=== PATIENT | male | born 1955 | race Caucasian/White ===

== ENCOUNTER 2022-04-13 09:50 | Emergency (ER) | payer BC, MEDICARE ==
[2022-04-13] MEDS: Sodium Chloride 0.9% 1,000 ML IV ONE (11:00)
[2022-04-13 11:17] LABS: ANION GAP 15.1 mmol/L (5-15)
[2022-04-13] MEDS: Ketorolac 30 MG/ML SDV IVPUSH ONE (13:23)
[2022-04-13] MEDS: Tamsulosin 0.4 MG Cap.ER PO ONE (13:28)
== END 2022-04-13 13:40 | disposition home or self-care (01) ==
LOC: KA.ED 09:50
DX: N13.2 Hydronephrosis with renal and ureteral calculous obstruction (principal); E11.9 Type 2 diabetes mellitus without complications; Z88.0 Allergy status to penicillin; Z79.4 Long term (current) use of insulin
CPT/HCPCS: 36415; 74176; 80053; 81001; 85025; 96361; 96374; 99284; 99284-25; A9270-GY; J1885; J7030